=== PATIENT | female | born 1970 | race Caucasian/White ===

== ENCOUNTER 2016-09-15 15:14 | Outpatient (CLI) | payer OTHER | END 2016-09-15 15:15 | disposition home or self-care (01) | DX: M77.31 Calcaneal spur, right foot (principal); M77.32 Calcaneal spur, left foot ==

== ENCOUNTER 2017-04-17 14:39 | Emergency (ER) | payer OTHER ==
[2017-04-17 15:20] LABS: BASOPHILS # (AUTO) 0.1 10^3/uL (0.0-0.1); BASOPHILS % (AUTO) 0.5 %; EOSINOPHILS # (AUTO) 0.1 10^3/uL (0.0-0.7); EOSINOPHILS % (AUTO) 0.8 %; HGB - HEMOGLOBIN 15.1 g/dL (12.0-16.0); LYMPHOCYTES # (AUTO) 1.8 10^3/uL (1.5-3.5); LYMPHOCYTES % (AUTO) 14.5 %; MEAN CORPUSCULAR HEMOGLOBIN 31.6 pg (27.0-31.0); MEAN CORPUSCULAR HGB CONC 34.3 g/dL (32.0-36.0); MEAN CORPUSCULAR VOLUME 92.2 fL (81.0-99.0); MEAN PLATELET VOLUME 8.4 fL (7.9-10.8); MONOCYTES # (AUTO) 1.1 10^3/uL (0.0-1.0); MONOCYTES % (AUTO) 8.6 %; NEUTROPHILS # (AUTO) 9.6 10^3/uL (1.5-6.6); NEUTROPHILS % (AUTO) 75.6 %; RED BLOOD COUNT 4.77 10^6/uL (4.20-5.40); RED CELL DISTRIBUTION WIDTH 13.1 % (12.0-15.0); UNCORRECTED WHITE BLOOD COUNT 12.7 x10^3/uL; WHITE BLOOD COUNT 12.7 x10^3/uL (4.8-10.8)
--- NOTE | 2017-04-17 15:33 | XRAY Preliminary Report ---
Exam: XR CHEST 1 VIEW IMPRESSION: Normal single view chest. [facility] SITE ID: [id number]
[2017-04-17 15:35] LABS: ALBUMIN/GLOBULIN RATIO 1.4 (1.0-2.2); BILIRUBIN,TOTAL 0.7 mg/dL (0.2-1.0); CALCIUM 9.2 mg/dL (8.5-10.3); CREATININE 0.8 mg/dL (0.4-1.0); POTASSIUM 3.8 mmol/L (3.5-5.0); TOTAL PROTEIN 7.1 g/dL (6.7-8.2)
--- NOTE | 2017-04-17 15:37 | XRAY Report ---
EXAM: CHEST RADIOGRAPHY EXAM DATE: 04/17/2017 03:20 PM. CLINICAL HISTORY: Chest pain. COMPARISON: 09/21/2014. TECHNIQUE: 1 view. FINDINGS: Lungs/Pleura: No focal opacities evident. No pleural effusion. No pneumothorax. Mediastinum: Within exam limitations, the cardiomediastinal contour is normal. Other: None. IMPRESSION: Normal single view chest. [facility] Referring Provider Line: [phone] SITE ID: [id number]
[2017-04-17] MEDS ORDERED: SODIUM CHLORIDE 0.9% 1,000 ML IV ONE (15:53)
--- NOTE | 2017-04-17 15:57 | ED Physician Documentation ---
PD HPI CHEST PAIN - Stated complaint Stated Complaint: INCREASE HEART RATE - Chief complaint Chief Complaint: Cardiac - History obtained from History obtained from: Patient, Family - History of Present Illness Timing - onset: How many weeks ago (4) Timing - onset during: Light activity Timing - duration: Weeks Timing - details: Gradual onset, Still present, Waxing and waning Quality: Other (fluttering in the chest) Location: Substernal Radiation: Neck Improved by: Rest Worsened by: Exertion Associated symptoms: Shortness of air. 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 She has been having an issue with heart rate being rapid periodically since before . She does not feel particularly ill she did think she had a sinus infection and rapid heart rate is been associated with that previously so she went into see her doctor and was treated for that. She feels her symptoms are mostly improved. She does have state that she is urinating a lot. Review of Systems Constitutional: reports: Fatigue. denies: Fever, Chills Eyes: denies: Decreased vision Ears: denies: Ear pain Nose: reports: Congestion, Sinus pressure / pain Throat: denies: Sore throat Cardiac: reports: Palpitations. denies: Chest pain / pressure, Pedal edema, Calf pain Respiratory: reports: Dyspnea. 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 : None HEENT: Chronic sinusitis Psych: Anxiety Musculoskeletal: None Derm: None Other Past Medical History: Clifford's - Past Surgical History Past Surgical History: Yes General: Cholecystectomy, Appendectomy - Present Medications Home Medications: Ambulatory Orders Medication Instructions Recorded Confirmed Hydrocortisone 35 mg PO TID 06/28/15 04/17/17 Levothyroxine Sodium 50 mcg PO QDAC 06/28/15 04/17/17 Aspirin Chewable [[facility] [place] 81 mg PO DAILY 04/17/17 04/17/17 Aspirin] Cetirizine [ZyrTEC] 10 mg PO DAILY 04/17/17 04/17/17 - Allergies Allergies/Adverse Reactions: Allergies Allergy/AdvReac Type Severity Reaction Status Date / Time prochlorperazine edisylate * Allergy Severe Edema Verified 04/17/17 16:00 [From Compazine] prochlorperazine maleate * Allergy Severe Edema Verified 04/17/17 16:00 [From Compazine] Sulfa (Sulfonamide Allergy Intermediate Hives Verified 04/17/17 16:00 Antibiotics) amoxicillin trihydrate * Allergy Hives Verified 04/17/17 16:00 [From Augmentin] gluten Allergy Unknown Verified 04/17/17 16:00 potassium clavulanate * Allergy Hives Verified 04/17/17 16:00 [From Augmentin] sesame seed Allergy Unknown Verified 04/17/17 16:00 tramadol Allergy Unknown Verified 04/17/17 16:00 - Social History Does the pt smoke?: No Smoking Status: Never smoker Does the pt drink ETOH?: No Does the pt have substance abuse?: No - Immunizations Immunizations are current?: Yes - POLST Patient has POLST: No PD ED PE NORMAL - Vitals Vital signs reviewed: Yes - General General: Alert and oriented X 3, No acute distress, Well developed/nourished - HEENT HEENT: Atraumatic, PERRL, EOMI, Other (The left TM is thickened and lichenified consistent with recently improving/resolving infection.) - Neck Neck: Supple, no meningeal sign, No bony TTP - Cardiac Cardiac: No murmur, Other (tachy to 120 regular) - Respiratory Respiratory: No respiratory distress, Clear bilaterally - Abdomen Abdomen: Soft, Non tender - Back Back: No CVA TTP, No spinal TTP - Derm Derm: Normal color, Warm and dry, No rash - Extremities Extremities: No deformity, No edema - Neuro Neuro: No motor deficit, No sensory deficit Eye Opening: Spontaneous Motor: Obeys Commands Verbal: Oriented GCS Score: 15 - Psych Psych: Normal mood, Normal affect Results - Vitals Vitals: Vital Signs - 24 hr 04/17/17 04/17/17 04/17/17 14:47 15:43 18:03 Temperature 36.8 C 36.2 C L Heart Rate 135 H 127 H 96 Respiratory 20 17 17 Rate Blood Pressure 145/97 H 137/97 H 122/95 H O2 Saturation 100 100 98 Oxygen O2 Source Room air - EKG (time done) 1458 Rate: Rate (enter#) (130) Rhythm: Sinus tachycardia Ischemia: Normal ST segments Compare to prior EKG: Changed from prior EKG (SPT 06-26-2016 rate has increased. ) Computer interpretation: Disagree with computer (I do not see ST depression or T wave flattening. ) - Labs Labs: Laboratory Tests 04/17/17 04/17/17 04/17/17 15:12 15:12 15:12 WBC 12.7 H RBC 4.77 Hgb 15.1 Hct 44.0 MCV 92.2 MCH 31.6 H MCHC 34.3 RDW 13.1 Plt Count 232 MPV 8.4 Neut # 9.6 H Lymph # 1.8 [place] # 1.1 H Eos # 0.1 Baso # 0.1 Absolute Nucleated RBC 0.01 Nucleated RBC % 0.0 Sodium 139 Potassium 3.8 Chloride 105 Carbon Dioxide 23 Anion Gap 11.0 BUN 17 Creatinine 0.8 Estimated GFR (MDRD) 77 L Glucose 109 H Calcium 9.2 Total Bilirubin 0.7 AST 25 ALT 22 Alkaline Phosphatase 53 Troponin I < 0.04 Total Protein 7.1 Albumin 4.1 Globulin 3.0 Albumin/Globulin Ratio 1.4 Lipase 38 TSH Thyroxine (T4) Urine Color Urine Clarity Urine pH Ur Specific [place] Urine Protein Urine Glucose (UA) Urine Ketones Urine Occult Blood Urine Nitrite Urine Bilirubin Urine Urobilinogen Ur Leukocyte Esterase Urine RBC Urine WBC Ur Squamous Epith Cells Urine Bacteria Ur Microscopic Review Urine Culture Comments Urine HCG, Qual 04/17/17 04/17/17 04/17/17 15:12 16:06 16:06 WBC RBC Hgb Hct MCV MCH MCHC RDW Plt Count MPV Neut # Lymph # [place] # Eos # Baso # Absolute Nucleated RBC Nucleated RBC % Sodium Potassium Chloride Carbon Dioxide Anion Gap BUN Creatinine Estimated GFR (MDRD) Glucose Calcium Total Bilirubin AST ALT Alkaline Phosphatase Troponin I Total Protein Albumin Globulin Albumin/Globulin Ratio Lipase TSH 1.14 Thyroxine (T4) 7.65 Urine Color YELLOW Urine Clarity HAZY Urine pH 7.0 Ur Specific [place] <=1.005 <=1.005 Urine Protein NEGATIVE Urine Glucose (UA) NEGATIVE Urine Ketones NEGATIVE Urine Occult Blood SMALL H Urine Nitrite NEGATIVE Urine Bilirubin NEGATIVE Urine Urobilinogen 0.2 (NORMAL) Ur Leukocyte Esterase NEGATIVE Urine RBC 6-10 H Urine WBC 0-3 Ur Squamous Epith Cells MOD Squamous H Urine Bacteria None Seen Ur Microscopic Review INDICATED Urine Culture Comments NOT INDICATED Urine HCG, Qual NEGATIVE - Rads (name of study) 1 view chest Radiology: Prelim report reviewed (Impression: Normal single view chest.), EMP read indepedently, See rad report CT angio chest Radiology: Prelim report reviewed (Impression: Negative pulmonary CT angiogram. 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 She is found to be volume depleted IV is begun and saline is administered. She has a history of pulmonary embolism and CT angiogram is obtained as well. CT is negative for embolism or lung disease. The patient is hydrated with saline by vein and her heart rate decreases to under 100. Departure - Departure Disposition: 01 Home, Self Care Clinical Impression: Sinus tachycardia, Dehydration Condition: Stable Instructions: ED Dehydration, ED Tachycardia Pat PSVT Follow-Up: Khushi Gurrola PA-C [Primary Care Provider] - Discharge Date/Time: 04/17/17 18:07
[2017-04-17] MEDS ORDERED: IOPAMIDOL-300 100 ML VIAL ONE (16:02)
[2017-04-17] MEDS ORDERED: IOPAMIDOL-300 100 ML VIAL IVP ONE ×2 (16:24)
--- NOTE | 2017-04-17 16:57 | CT Preliminary Report ---
Exam: CT CHEST ANGIO (PE) IMPRESSION: Negative pulmonary CT angiogram. No pulmonary emboli. [facility] SITE ID: [id number]
--- NOTE | 2017-04-17 16:59 | CT Report ---
EXAM: CT ANGIOGRAM CHEST EXAM DATE: 04/17/2017 04:27 PM. CLINICAL HISTORY: Tachycardia. COMPARISON: 01/23/2016. TECHNIQUE: Routine helical imaging was performed through the chest in the pulmonary arterial phase. I V Contrast: 100 cc Isovue-300. Reconstructions: Coronal 3-D MIP reconstructions.Sagittal and coronal. In accordance with CT protocol optimization, one or more of the following dose reduction techniques w ere utilized for this exam: automated exposure control, adjustment of mA and/or KV based on patient s ize, or use of iterative reconstructive technique. FINDINGS: Pulmonary Arteries: Diagnostic quality: Adequate through the segmental arteries. No evidence for acute or chronic pulmona ry emboli. RV/LV is within normal limits. There is no interventricular septal bowing. There is no reflux of cont rast material in the IVC. Lungs/Pleura: No consolidation, nodules, or edema. No effusions or pneumothorax. Mediastinum: Normal. No cardiac enlargement or adenopathy. Thoracic Aorta: Unremarkable. Upper Abdomen: No acute abnormalities. The left kidney is not seen. Other: None. IMPRESSION: Negative pulmonary CT angiogram. No pulmonary emboli. [facility] Referring Provider Line: [phone] SITE ID: [id number]
[2017-04-17 17:26] LABS: BILIRUBIN,URINE NEGATIVE (NEGATIVE)
[2017-04-17 17:28] LABS: UA w/ MICROSCOPIC CHARGE YES
[2017-04-17 17:29] LABS: HCG UR QUAL NEGATIVE
[2017-04-17 17:38] LABS: WBC,URINE 0-3 /HPF (0-5)
[2017-04-17 17:39] LABS: UR CULTURE IF IND NOT INDICATED
[2017-04-17 18:04] VITALS: BP 122/95
[2017-04-17 18:36] LABS: THYROID STIMULATING HORMONE 1.14 uIU/mL (0.34-5.60)
== END 2017-04-17 18:07 | disposition home or self-care (01) ==
LOC: ED 14:39
DX: R00.0 Tachycardia, unspecified (principal); E86.0 Dehydration; E27.1 Primary adrenocortical insufficiency; Z86.711 Personal history of pulmonary embolism; Z79.82 Long term (current) use of aspirin
CPT/HCPCS: 36415; 71010; 71275; 80053; 81001; 81025; 83690; 84436; 84443; 84484; 85025; 93005; 96360; 99283; 99284; Q9967; 81003; 87086

== ENCOUNTER 2017-05-11 10:55 | Outpatient (CLI) | payer OTHER ==
--- NOTE | 2017-05-13 09:21 | Mammography Report ---
DATE OF SERVICE: 05/11/2017 DIGITAL SCREENING MAMMOGRAM: 05/11/2017 CLINICAL INDICATION: A 47-year-old, for screening. COMPARISON: 01/2016, 03/2013. TECHNIQUE: Routine CC and MLO projections were obtained of the breasts. FINDINGS: Scattered fibroglandular tissue is present within the breasts. There are no dominant mass es, suspicious microcalcifications, or secondary signs of malignancy. In comparison to the previous stud ies, there are no significant changes. ASSESSMENT: NO MAMMOGRAPHIC EVIDENCE OF MALIGNANCY. NO SIGNIFICANT INTERVAL CHANGES. RECOMMENDATION: Screening mammography is recommended annually. BIRADS category 1 - negative. STANDARD QUALIFYING STATEMENTS: 1. This examination was reviewed with the aid of Computed-Aided Detection (CAD). 2. A negative or benign imaging report should not delay biopsy if clinically suspicious findings are present. Consider surgical consultation if warranted. More than 5% of cancers are not identified by imaging. 3. Dense breasts may obscure an underlying neoplasm. TD: 05/13/2017 10:19
== END 2017-05-11 10:56 | disposition home or self-care (01) ==
LOC: DI 10:55
PROVIDERS: ATTEND Physician Assistant Medical
DX: Z12.31 Encounter for screening mammogram for malignant neoplasm of breast (principal)
CPT/HCPCS: 77067

== ENCOUNTER 2017-06-13 11:18 | Outpatient (CLI) | payer OTHER ==
--- NOTE | 2017-06-13 12:46 | Ultrasound Report ---
EXAM: PELVIC ULTRASOUND EXAM DATE: 06/13/2017 12:03 PM. CLINICAL HISTORY: EXCESSIVE AND FREQUENT MENSTRUATION WITH REGULAR C. LMP 05/24/2017. COMPARISON: None. TECHNIQUE: Realtime transabdominal pelvic scan performed to identify the uterus and adnexa and as an overview of other pelvic structures, followed by transvaginal scan to provide greater detail of the u terus and adnexa, with static image documentation. FINDINGS: Uterus: 9.0 x 5.3 x 6.6 cm, volume 165 cc. Anteverted position. Normal overall size and echotexture. Masses: None. Endometrium: Between 10 and 13 mm. No focal mass, laminar appearance. No hypervascularity. Junctional zone appears intact. Cervix: Unremarkable. Right Ovary: 2.3 x 2.0 x 2.2 cm, volume 5.3 cc. 1.9 cm simple cyst. Normal echotexture and blood flow . Left Ovary: 2.9 x 2.0 x 3 cm, volume 9.1 cc. 1.9 x 1.1 x 1.2 cm cyst with internal echoes/debris. No internal vascularity. Normal echotexture and blood flow. Free Fluid: Small volume of free fluid on the left. Other: Left pelvic kidney. No hydronephrosis. IMPRESSION: 1. 1.9 cm probable hemorrhagic follicular cyst in left ovary. Small amount of free fluid in left lowe r quadrant. Simple 1.9 cm cyst in right ovary. Ovaries otherwise unremarkable. 2. Incidental left pelvic kidney. No hydronephrosis. [facility] Referring Provider Line: [phone] SITE ID: [id number]
== END 2017-06-13 11:19 | disposition home or self-care (01) ==
LOC: DI 11:18
PROVIDERS: ATTEND Physician Assistant Medical
DX: N83.202 Unspecified ovarian cyst, left side (principal); N83.201 Unspecified ovarian cyst, right side
CPT/HCPCS: 76830; 76856

== ENCOUNTER 2017-06-29 20:48 | Outpatient (CLI) | payer OTHER | END 2017-06-29 20:49 | disposition home or self-care (01) | LOC: DI 20:48 | PROVIDERS: ATTEND Obstetrics & Gynecology | DX: Z53.9 Procedure and treatment not carried out, unspecified reason (principal) ==

== ENCOUNTER 2017-08-20 23:11 | Emergency (ER) | payer OTHER ==
--- NOTE | 2017-08-20 23:24 | ED Physician Documentation ---
PD HPI FOCAL NEURO - Stated complaint Stated Complaint: FACIAL NUMBNESS - History obtained from History obtained from: Patient - History of Present Illness Timing - onset: Enter time (22:45), Today Timing - details: Abrupt onset Severity of deficit: Mild Numbness: Right Associated symptoms: No: Headache, Syncope, Fall, Head injury, Chest pain, Fever Baseline status: positive: A&OX3, ambulatory, indep Similar symptoms before: Has not had sx before Recently seen: Not recently seen - Additional information Additional information: 10:45 PM tonight, sudden onset right facial swelling and numbness (she compares the sensation to that associated with dental block). she notes redness as well, though faint Review of Systems Constitutional: reports: Reviewed and negative Eyes: reports: Reviewed and negative Nose: denies: Congestion, Sinus pressure / pain Throat: denies: Dental pain / toothache Cardiac: reports: Reviewed and negative Respiratory: reports: Reviewed and negative GI: reports: Reviewed and negative Neurologic: reports: Numbness. 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 HEENT: Chronic sinusitis Psych: Anxiety Musculoskeletal: None Derm: None - Past Surgical History Past Surgical History: Yes General: Cholecystectomy, Appendectomy - Present Medications Home Medications: Ambulatory Orders Medication Instructions Recorded Confirmed Hydrocortisone 35 mg PO TID 06/28/15 04/17/17 Levothyroxine Sodium 50 mcg PO QDAC 06/28/15 04/17/17 Aspirin Chewable [[facility] [place]win 81 mg PO DAILY 04/17/17 04/17/17 Aspirin] Cetirizine [ZyrTEC] 10 mg PO DAILY 04/17/17 04/17/17 Cephalexin [Keflex] 500 mg PO Q6HR #27 capsule 08/21/17 predniSONE [Prednisone] 20 mg PO BID #9 tablet 08/21/17 - Allergies Allergies/Adverse Reactions: Allergies Allergy/AdvReac Type Severity Reaction Status Date / Time prochlorperazine edisylate * Allergy Severe Edema Verified 08/20/17 23:35 [From Compazine] prochlorperazine maleate * Allergy Severe Edema Verified 08/20/17 23:35 [From Compazine] Sulfa (Sulfonamide Allergy Intermediate Hives Verified 08/20/17 23:35 Antibiotics) amoxicillin trihydrate * Allergy Hives Verified 08/20/17 23:35 [From Augmentin] gluten Allergy Unknown Verified 08/20/17 23:35 potassium clavulanate * Allergy Hives Verified 08/20/17 23:35 [From Augmentin] sesame seed Allergy Unknown Verified 08/20/17 23:35 tramadol Allergy Unknown Verified 08/20/17 23:35 - Social History Does the pt smoke?: No Smoking Status: Never smoker Does the pt drink ETOH?: No Does the pt have substance abuse?: No - Immunizations Immunizations are current?: Yes - POLST Patient has POLST: No PD ED PE NORMAL - Vitals Vital signs reviewed: Yes - General General: Alert and oriented X 3, No acute distress, Well developed/nourished - HEENT HEENT: PERRL, EOMI, Moist mucous membranes, Pharynx benign, Dentition benign - Neck Neck: Supple, no meningeal sign - Cardiac Cardiac: RRR, No murmur, No gallop, No rub - Respiratory Respiratory: No respiratory distress, Clear bilaterally - Derm Derm: Normal color, Warm and dry - Extremities Extremities: No edema - Neuro Neuro: Alert and oriented X 3, porter head 2-12 intact, No motor deficit, No sensory deficit, Normal speech Eye Opening: Spontaneous Motor: Obeys Commands Verbal: Oriented GCS Score: 15 PD ED PE EXPANDED - HEENT HEENT: Other (subtle swelling right face (cheek) with small, faint erythema adjacent to right lower lip) Results - Vitals Vitals: Oxygen O2 Source Room air - Labs Labs: Laboratory Tests 08/20/17 08/20/17 23:55 23:55 WBC 10.3 RBC 4.57 Hgb 14.3 Hct 42.6 MCV 93.1 MCH 31.3 H MCHC 33.6 RDW 13.5 Plt Count 200 MPV 9.3 Neut # 6.7 H Lymph # 2.5 [place] # 0.9 Eos # 0.2 Baso # 0.0 Absolute Nucleated RBC 0.00 Nucleated RBC % 0.0 Sodium 138 Potassium 3.9 Chloride 107 Carbon Dioxide 24 Anion Gap 7.0 BUN 16 Creatinine 0.7 Estimated GFR (MDRD) 90 Glucose 144 H Calcium 8.9 - Rads (name of study) CTH Radiology: Prelim report reviewed, See rad report PD MEDICAL DECISION MAKING - ED course Complexity details: reviewed results, re-evaluated patient, considered differential, d/w patient ED course: there is subtle swelling of right cheek and trace erythema. she describes numbness although she perceives equal LTS bilaterally on exam. swelling might represent weakness c/w Marilla Palsy (causing sagging and thus subtle appearance and perception of swelling), but there is no demonstrable weakness when tested ( smiling, raising eyebrows, closing eyes); while Marilla Palsy is of low suspicion at this time, when considering numbness as well, will prescribe prednisone for possible early Marilla Palsy. Similarly, prescribed antibiotic for possible infectious process, although this is also low likelihood at this time. allergic reaction is possible (no apparent trigger), and not likely due to unilateral swelling, but prednisone would also help if this is the etiology. she is already taking QD antihistamine Departure - Departure Disposition: 01 Home, Self Care Clinical Impression: Facial swelling Condition: Good Instructions: ED Marilla Palsy, ED Cellulitis Facial Follow-Up: Khushi Gurrola PA-C [Primary Care Provider] - Prescriptions: Cephalexin [Keflex] 500 mg PO Q6HR #27 capsule predniSONE [Prednisone] 20 mg PO BID #9 tablet Discharge Date/Time: 08/21/17 01:59
[2017-08-21 00:10] LABS: CALCIUM 8.9 mg/dL (8.5-10.3); CREATININE 0.7 mg/dL (0.4-1.0)
[2017-08-21 00:18] LABS: BASOPHILS % (AUTO) 0.5 %; EOSINOPHILS # (AUTO) 0.2 10^3/uL (0.0-0.7); HGB - HEMOGLOBIN 14.3 g/dL (12.0-16.0); LYMPHOCYTES # (AUTO) 2.5 10^3/uL (1.5-3.5); LYMPHOCYTES % (AUTO) 23.8 %; MEAN CORPUSCULAR HEMOGLOBIN 31.3 pg (27.0-31.0); MEAN CORPUSCULAR HGB CONC 33.6 g/dL (32.0-36.0); MEAN CORPUSCULAR VOLUME 93.1 fL (81.0-99.0); MEAN PLATELET VOLUME 9.3 fL (7.9-10.8); MONOCYTES # (AUTO) 0.9 10^3/uL (0.0-1.0); MONOCYTES % (AUTO) 8.4 %; NEUTROPHILS # (AUTO) 6.7 10^3/uL (1.5-6.6); NEUTROPHILS % (AUTO) 65.3 %; PLT - PLATELET COUNT 200 10^3/uL (130-450); RED BLOOD COUNT 4.57 10^6/uL (4.20-5.40); RED CELL DISTRIBUTION WIDTH 13.5 % (12.0-15.0); WHITE BLOOD COUNT 10.3 x10^3/uL (4.8-10.8)
--- NOTE | 2017-08-21 00:48 | CT Preliminary Report ---
Exam: CT HEAD W/O IMPRESSION: 1. Negative CT head without contrast. No significant change compared to 08/15/2015. [facility] SITE ID: [id number]
--- NOTE | 2017-08-21 00:48 | CT Report ---
EXAM: CT HEAD EXAM DATE: 08/21/2017 12:15 AM. CLINICAL HISTORY: Right facial numbness. COMPARISON: CT head 08/15/2015.. TECHNIQUE: Multiaxial CT images were obtained from the foramen magnum to the vertex. Reformats: Coron al. IV contrast: None. In accordance with CT protocol optimization, one or more of the following dose reduction techniques w ere utilized for this exam: automated exposure control, adjustment of mA and/or KV based on patient s ize, or use of iterative reconstructive technique. FINDINGS: Parenchyma: No intraparenchymal hemorrhage. No evidence of mass, midline shift, or CT findings of inf arction. Olivares-white differentiation is distinct. Extraaxial Spaces: Normal for age. No subdural or epidural collections identified. Ventricles: Normal in size and position. Sinuses and Orbits: Imaged paranasal sinuses, orbits, and mastoids show no significant abnormality. Bones: No evidence of fracture or calvarial defect. Other: None. IMPRESSION: 1. Negative CT head without contrast. No significant change compared to 08/15/2015. [facility] Referring Provider Line: [phone] SITE ID: [id number]
[2017-08-21] MEDS ORDERED: cephALEXin 250 MG CAPSULE PO STA (01:47)
[2017-08-21] MEDS ORDERED: predniSONE 20 MG TABLET PO STA (01:47)
[2017-08-21 01:57] VITALS: BP 146/88
== END 2017-08-21 01:59 | disposition home or self-care (01) ==
LOC: ED 23:11
DX: R22.0 Localized swelling, mass and lump, head (principal); R20.0 Anesthesia of skin; Z86.711 Personal history of pulmonary embolism
CPT/HCPCS: 36415; 70450; 80048; 85025; 99284; A9270; J7512

== ENCOUNTER 2017-11-19 15:28 | Emergency (ER) | payer OTHER ==
[2017-11-19] MEDS ORDERED: SODIUM CHLORIDE 0.9% 1,000 ML IV ONE (16:01)
[2017-11-19 16:11] LABS: BASOPHILS % (AUTO) 0.4 %; EOSINOPHILS # (AUTO) 0.1 10^3/uL (0.0-0.7); EOSINOPHILS % (AUTO) 0.5 %; LYMPHOCYTES # (AUTO) 1.4 10^3/uL (1.5-3.5); LYMPHOCYTES % (AUTO) 13.7 %; MEAN CORPUSCULAR HEMOGLOBIN 31.9 pg (27.0-31.0); MEAN CORPUSCULAR HGB CONC 33.5 g/dL (32.0-36.0); MEAN CORPUSCULAR VOLUME 95.3 fL (81.0-99.0); MEAN PLATELET VOLUME 9.3 fL (7.9-10.8); MONOCYTES # (AUTO) 0.7 10^3/uL (0.0-1.0); MONOCYTES % (AUTO) 6.5 %; NEUTROPHILS # (AUTO) 8.3 10^3/uL (1.5-6.6); NEUTROPHILS % (AUTO) 78.9 %; PLT - PLATELET COUNT 236 10^3/uL (130-450); RED BLOOD COUNT 4.71 10^6/uL (4.20-5.40); RED CELL DISTRIBUTION WIDTH 13.1 % (12.0-15.0); WHITE BLOOD COUNT 10.5 x10^3/uL (4.8-10.8)
[2017-11-19 16:17] LABS: PT - PROTHROMBIN TIME 11.5 secs (9.9-12.6)
[2017-11-19 16:26] LABS: ALBUMIN 4.3 g/dL (3.2-5.5); ALBUMIN/GLOBULIN RATIO 1.3 (1.0-2.2); CREATININE 0.9 mg/dL (0.4-1.0); MAGNESIUM 1.9 mg/dL (1.7-2.8); TOTAL PROTEIN 7.5 g/dL (6.7-8.2)
--- NOTE | 2017-11-19 16:32 | ED Physician Documentation ---
History of Present Illness - Stated complaint Stated Complaint: LT LEG PX/RACING HEART - Chief complaint Chief Complaint: General - History obtained from History obtained from: Patient - Additonal information Additional information: 47-year-old female presents to the emergency department for evaluation of tachycardia. The patient has a history of pulmonary embolism and DVT and in the past her only symptom was tachycardia. [place] the [place] the patient felt that her breathing was labored, she noticed that her heart was racing and when she checked her Fitbit her heart rate was in the 130s. The patient denies active chest pain or shortness of breath. The patient recently traveled from [place], the patient drove the car for 16 hours. The patient reported having leg pain during the trip but now her leg pain has improved. The patient denies recent illness, abdominal pain or changes in her medications or new over- the-counter medications. Symptoms are described as moderate. No radiation of the symptoms. No other associated symptoms. No relieving factors Review of Systems Constitutional: denies: Fever, Chills, Fatigue Eyes: denies: Discharge Ears: denies: Ear pain Nose: denies: Congestion Throat: denies: Sore throat Cardiac: reports: Palpitations. denies: Chest pain / pressure Respiratory: reports: Dyspnea. denies: Cough, Hemoptysis GI: denies: Abdominal Pain : denies: Dysuria Skin: denies: Rash Musculoskeletal: denies: Neck pain Neurologic: denies: Generalized weakness, Numbness, Syncope Psychiatric: denies: Depressed Immunocompromised: denies: Chemotherapy PD PAST MEDICAL HISTORY - Past Medical History Past Medical History: Yes Cardiovascular: None, Pulmonary embolism Respiratory: Other Endocrine/Autoimmune: Other GI: None ETHOLOGIST: None : None HEENT: Chronic sinusitis Psych: Anxiety Musculoskeletal: None Derm: None Other Past Medical History: Addisons - Past Surgical History Past Surgical History: Yes General: Cholecystectomy, Appendectomy - Present Medications Home Medications: Ambulatory Orders Medication Instructions Recorded Confirmed Hydrocortisone 35 mg PO TID 06/28/15 04/17/17 Levothyroxine Sodium 50 mcg PO QDAC 06/28/15 04/17/17 Aspirin Chewable [[facility] [place] 81 mg PO DAILY 04/17/17 04/17/17 Aspirin] Cetirizine [ZyrTEC] 10 mg PO DAILY 04/17/17 04/17/17 - Allergies Allergies/Adverse Reactions: Allergies Allergy/AdvReac Type Severity Reaction Status Date / Time prochlorperazine edisylate * Allergy Severe Edema Verified 08/20/17 23:35 [From Compazine] prochlorperazine maleate * Allergy Severe Edema Verified 08/20/17 23:35 [From Compazine] Sulfa (Sulfonamide Allergy Intermediate Hives Verified 08/20/17 23:35 Antibiotics) amoxicillin trihydrate * Allergy Hives Verified 08/20/17 23:35 [From Augmentin] gluten Allergy Unknown Verified 08/20/17 23:35 potassium clavulanate * Allergy Hives Verified 08/20/17 23:35 [From Augmentin] sesame seed Allergy Unknown Verified 08/20/17 23:35 tramadol Allergy Unknown Verified 11/19/17 15:45 - Social History Does the pt smoke?: No Smoking Status: Never smoker Does the pt drink ETOH?: No Does the pt have substance abuse?: No - Immunizations Immunizations are current?: Yes - POLST Patient has POLST: No PD ED PE NORMAL - General General: Alert and oriented X 3, No acute distress - HEENT HEENT: Atraumatic, PERRL, EOMI - Neck Neck: Supple, no meningeal sign - Cardiac Cardiac: Other (Regular Rhythm, tachycardia with PVCs) - Respiratory Respiratory: No respiratory distress, Clear bilaterally - Abdomen Abdomen: Normal bowel sounds, Soft, Non tender, Non distended - Derm Derm: Normal color - Extremities Extremities: No deformity, No tenderness to palpate, No edema. No: No calf tenderness / cord (Bilateral calf tendernes or edema) - Neuro Neuro: Alert and oriented X 3, Normal speech - Psych Psych: Normal mood Results - Vitals Vitals: Vital Signs - 24 hr 11/19/17 15:42 Temperature 36.4 C L Heart Rate 140 H Respiratory 20 Rate Blood Pressure 125/80 O2 Saturation 99 Oxygen O2 Source Room air - EKG (time done) 15: 54 Rate: Rate (enter#) Rhythm: Sinus tachycardia Intervals: Normal TN, QRS normal QRS: Normal Ischemia: Non specific changes Other comments: Other comments (Sinus tachycardia with nonspecific ST changes and multiple PVCs) - Labs Labs: Laboratory Tests 11/19/17 11/19/17 11/19/17 16:06 16:06 16:06 WBC 10.5 RBC 4.71 Hgb 15.0 Hct 44.9 MCV 95.3 MCH 31.9 H MCHC 33.5 RDW 13.1 Plt Count 236 MPV 9.3 Neut # (Auto) 8.3 H Lymph # (Auto) 1.4 L Carlton # (Auto) 0.7 Eos # (Auto) 0.1 Baso # (Auto) 0.0 Absolute Nucleated RBC 0.00 Nucleated RBC % 0.0 PT 11.5 INR 1.0 APTT 23.9 L Sodium 140 Potassium 4.0 Chloride 108 Carbon Dioxide 23 Anion Gap 9.0 BUN 16 Creatinine 0.9 Estimated GFR (MDRD) 67 L Glucose 108 H Calcium 9.0 Magnesium 1.9 Total Bilirubin 1.0 AST 22 ALT 19 Alkaline Phosphatase 41 L Troponin I B-Natriuretic Peptide Total Protein 7.5 Albumin 4.3 Globulin 3.2 Albumin/Globulin Ratio 1.3 Lipase 33 TSH Free T4 Urine Color Urine Clarity Urine pH Ur Specific Luckey Urine Protein Urine Glucose (UA) Urine Ketones Urine Occult Blood Urine Nitrite Urine Bilirubin Urine Urobilinogen Ur Leukocyte Esterase Urine RBC Urine WBC Ur Squamous Epith Cells Urine Bacteria Ur Microscopic Review Urine Culture Comments Urine HCG, Qual Urine Opiates Screen Ur Oxycodone Screen Urine Methadone Screen Ur Propoxyphene Screen Ur Barbiturates Screen Ur Tricyclics Screen Ur Phencyclidine Scrn Ur Amphetamine Screen U Methamphetamines Scrn U Benzodiazepines Scrn Urine Cocaine Screen U Cannabinoids Screen 11/19/17 11/19/17 11/19/17 16:06 16:06 16:06 WBC RBC Hgb Hct MCV MCH MCHC RDW Plt Count MPV Neut # (Auto) Lymph # (Auto) Carlton # (Auto) Eos # (Auto) Baso # (Auto) Absolute Nucleated RBC Nucleated RBC % PT INR APTT Sodium Potassium Chloride Carbon Dioxide Anion Gap BUN Creatinine Estimated GFR (MDRD) Glucose Calcium Magnesium Total Bilirubin AST ALT Alkaline Phosphatase Troponin I < 0.04 B-Natriuretic Peptide 12 Total Protein Albumin Globulin Albumin/Globulin Ratio Lipase TSH 0.52 Free T4 0.97 Urine Color Urine Clarity Urine pH Ur Specific Luckey Urine Protein Urine Glucose (UA) Urine Ketones Urine Occult Blood Urine Nitrite Urine Bilirubin Urine Urobilinogen Ur Leukocyte Esterase Urine RBC Urine WBC Ur Squamous Epith Cells Urine Bacteria Ur Microscopic Review Urine Culture Comments Urine HCG, Qual Urine Opiates Screen Ur Oxycodone Screen Urine Methadone Screen Ur Propoxyphene Screen Ur Barbiturates Screen Ur Tricyclics Screen Ur Phencyclidine Scrn Ur Amphetamine Screen U Methamphetamines Scrn U Benzodiazepines Scrn Urine Cocaine Screen U Cannabinoids Screen 11/19/17 11/19/17 16:30 16:30 WBC RBC Hgb Hct MCV MCH MCHC RDW Plt Count MPV Neut # (Auto) Lymph # (Auto) Carlton # (Auto) Eos # (Auto) Baso # (Auto) Absolute Nucleated RBC Nucleated RBC % PT INR APTT Sodium Potassium Chloride Carbon Dioxide Anion Gap BUN Creatinine Estimated GFR (MDRD) Glucose Calcium Magnesium Total Bilirubin AST ALT Alkaline Phosphatase Troponin I B-Natriuretic Peptide Total Protein Albumin Globulin Albumin/Globulin Ratio Lipase TSH Free T4 Urine Color YELLOW Urine Clarity CLEAR Urine pH 7.0 Ur Specific Luckey <=1.005 Urine Protein NEGATIVE Urine Glucose (UA) NEGATIVE Urine Ketones NEGATIVE Urine Occult Blood SMALL H Urine Nitrite NEGATIVE Urine Bilirubin NEGATIVE Urine Urobilinogen 0.2 (NORMAL) Ur Leukocyte Esterase NEGATIVE Urine RBC 6-10 H Urine WBC 0-3 Ur Squamous Epith Cells FEW Squamous Urine Bacteria Rare Ur Microscopic Review INDICATED Urine Culture Comments NOT INDICATED Urine HCG, Qual NEGATIVE Urine Opiates Screen NEGATIVE Ur Oxycodone Screen NEGATIVE Urine Methadone Screen NEGATIVE Ur Propoxyphene Screen NEGATIVE Ur Barbiturates Screen NEGATIVE Ur Tricyclics Screen NEGATIVE Ur Phencyclidine Scrn NEGATIVE Ur Amphetamine Screen NEGATIVE U Methamphetamines Scrn NEGATIVE U Benzodiazepines Scrn NEGATIVE Urine Cocaine Screen NEGATIVE U Cannabinoids Screen NEGATIVE - Rads (name of study) Bedside cardiac ultrasound Radiology: Other CTA CHEST Radiology: Final report received, See rad report (Impression: No DVT) Venous Doppler Radiology: Final report received, See rad report PD MEDICAL DECISION MAKING - ED course ED course: On reevaluation the patient is resting comfortably and on the monitor her heart rate is below 100 bpm, the patient's workup does not reveal any acute abnormality that would necessitate admission to the hospital or further workup in the emergency department. The patient feels much improved and appears appropriate for discharge home and further workup as an outpatient. I discussed with the patient the findings and plan she understands and agrees. I discussed warning signs and recommended returning to the emergency department immediately for worsening or concerns. - Sepsis Event Vital Signs: Vital Signs - 24 hr 11/19/17 15:42 Temperature 36.4 C L Heart Rate 140 H Respiratory 20 Rate Blood Pressure 125/80 O2 Saturation 99 Oxygen O2 Source Room air Departure - Departure Disposition: Home, Self Care Clinical Impression: Tachycardia Dyspnea Qualifiers: Dyspnea type: unspecified Qualified Code(s): R06.00 - Dyspnea, unspecified Leg pain Qualifiers: Laterality: unspecified laterality Qualified Code(s): M79.606 - Pain in leg, unspecified Condition: Good Instructions: ED Dyspnea Shortness of Breath, Tachycardia Follow-Up: Khushi Gurrola PA-C [Primary Care Provider] - Within 3 Days (Please ask your primary care physicians commercial loan assistant to arrange for an outpatient Holter monitor and echocardiogram to further evaluate your symptoms.) Comments: Please return to the emergency department for worsening symptoms or any concerns
[2017-11-19 16:45] LABS: MUDS CUTOFF CONCENTRATIONS CUTOFF CONC BELOW:
[2017-11-19 16:50] LABS: BILIRUBIN,URINE NEGATIVE (NEGATIVE); GLUCOSE, URINE (UA) NEGATIVE (NEGATIVE); KETONES,URINE (UA) NEGATIVE (NEGATIVE); LEUKOCYTE ESTERASE, URINE NEGATIVE (NEGATIVE); NITRITE,URINE NEGATIVE (NEGATIVE); OCCULT BLOOD,URINE SMALL (NEGATIVE); PROTEIN,URINE NEGATIVE (NEGATIVE); UROBILINOGEN,URINE 0.2 (NORMAL) E.U./dL (NORMAL)
[2017-11-19 16:52] LABS: CLARITY,URINE CLEAR (CLEAR); HCG UR QUAL NEGATIVE
[2017-11-19 16:58] LABS: THYROID STIMULATING HORMONE 0.52 uIU/mL (0.34-5.60)
[2017-11-19 17:00] LABS: FREE T4 (FREE THYROXINE) 0.97 ng/dL (0.58-1.64)
[2017-11-19 17:00] LABS: AMPHETAMINE SCREEN,URINE NEGATIVE (NEGATIVE); BENZODIAZEPINES SCREEN, URINE NEGATIVE (NEGATIVE); COCAINE SCREEN URINE NEGATIVE (NEGATIVE); METHADONE SCREEN, URINE NEGATIVE (NEGATIVE); METHAMPHETAMINES SCREEN, URINE NEGATIVE (NEGATIVE); OPIATE SCREEN, URINE NEGATIVE (NEGATIVE); OXYCODONE SCREEN, URINE NEGATIVE (NEGATIVE); PROPOXYPHENE SCREEN, URINE NEGATIVE (NEGATIVE); TRICYCLIC ANTIDEPRESSANT,URINE NEGATIVE (NEGATIVE)
[2017-11-19 17:01] LABS: BACTERIA,URINE Rare /HPF (None Seen); SQUAMOUS EPITHELIAL CELL,UR FEW Squamous (<= Few)
[2017-11-19] MEDS ORDERED: IOPAMIDOL-300 100 ML VIAL ONE (17:11)
[2017-11-19] MEDS ORDERED: IOPAMIDOL-300 100 ML VIAL IVP ONE (17:27)
--- NOTE | 2017-11-19 18:09 | CT Report ---
Procedure Date: 11/19/2017 Accession Number: [id number] / [id number] Procedure: CT - Chest Angio (PE) CPT Code: FULL RESULT: EXAM: CT ANGIOGRAM CHEST EXAM DATE: 11/19/2017 05:44 PM. CLINICAL HISTORY: Tachycardia, shortness of breath, history of pulmo. COMPARISON: CHEST ANGIO 04/17/2017. TECHNIQUE: Routine helical imaging was performed through the chest in the pulmonary arterial phase. IV Contrast: ISOVUE 300 80mL. Reconstructions: Coronal 3-D MIP reconstructions.Sagittal and coronal. In accordance with CT protocol optimization, one or more of the following dose reduction techniques were utilized for this exam: automated exposure control, adjustment of mA and/or KV based on patient size, or use of iterative reconstructive technique. FINDINGS: Pulmonary Arteries: Diagnostic quality: Adequate through the segmental arteries. Negative for acute pulmonary embolism. Main pulmonary artery is normal in size. Lungs/Pleura: No consolidative process or focal pneumonia. Trachea and central airways appear normal in caliber. Negative for pleural effusion and pneumothorax. Mediastinum: The heart size is normal. Negative for pericardial effusion. No mediastinal or hilar lymphadenopathy. Thoracic Aorta: Unremarkable. Upper Abdomen: Gallbladder surgically absent. Other: None. IMPRESSION: 1. Negative for pulmonary embolism. No other significant acute abnormality to explain clinical symptoms. RADIA
--- NOTE | 2017-11-19 19:53 | Ultrasound Report ---
Procedure Date: 11/19/2017 Accession Number: [id number] / [id number] Procedure: US - Duplex Ext Veins Bilateral CPT Code: FULL RESULT: EXAM: BILATERAL LOWER EXTREMITY VENOUS ULTRASOUND EXAM DATE: 11/19/2017 07:09 PM. CLINICAL HISTORY: Leg pain, h/o PE DVT. COMPARISON: CT pulmonary angiogram 11/19/2017 and 04/17/2017 left lower extremity DVT exam fall 20 06/23/2015 and 01/23/2016. TECHNIQUE: Real-time sonographic vascular imaging was performed by the pediatric critical care nurse through the lower extremities utilizing both color-flow and Doppler spectral analysis. Multiple ambulatory service representative static images were saved for review. FINDINGS: Right: Common Femoral Vein (CFV): Normal. CFV-GSV Junction: Normal. Profunda Femoral Vein (PFV): Normal. Femoral Vein (FV) Prox: Normal. Femoral Vein (FV) Mid: Normal. Femoral Vein (FV) Dist: Normal. Popliteal Vein: Normal. Posterior Tibial Veins: Normal. Peroneal Veins: Normal. Left: Common Femoral Vein (CFV): Normal. CFV-GSV Junction: Normal. Profunda Femoral Vein (PFV): Normal. Femoral Vein (FV) Prox: Normal. Femoral Vein (FV) Mid: Normal. Femoral Vein (FV) Dist: Normal. Popliteal Vein: Normal. Posterior Tibial Veins: Normal. Peroneal Veins: Normal. Other: None. IMPRESSION: No evidence for lower extremity deep venous thrombosis bilaterally. RADIA
[2017-11-19 20:28] VITALS: BP 125/91
== END 2017-11-19 20:27 | disposition home or self-care (01) ==
LOC: ED 15:28
DX: R00.0 Tachycardia, unspecified (principal); R06.00 Dyspnea, unspecified; M79.606 Pain in leg, unspecified; E27.1 Primary adrenocortical insufficiency; Z86.718 Personal history of other venous thrombosis and embolism; Z86.711 Personal history of pulmonary embolism; Z79.82 Long term (current) use of aspirin
CPT/HCPCS: 71275; 80053; 80306; 81001; 81025; 83690; 83735; 83880; 84439; 84443; 84484; 85025; 85610; 85730; 93005; 93970; 96360; 99283; 99284; Q9967; 36415; 81003; 87086

== ENCOUNTER 2018-08-16 14:43 | Outpatient (CLI) | payer OTHER ==
--- NOTE | 2018-08-17 10:40 | Mammography Report ---
Reason: SCREENING MAMMO Procedure Date: 08/16/2018 Accession Number: [id number] / [id number] Procedure: YE - Screening Mammo w/Yao CPT Code: FULL RESULT: EXAM: Screening Mammo w/Yao DATE: 08/16/2018 3:32 PM CLINICAL HISTORY: Screening examination. TECHNIQUE: (B) - Bilateral CC and MLO views were obtained. COMPARISON: 05/11/2017 01/08/2016 PARENCHYMAL PATTERN: (A) - The breasts demonstrate scattered fibroglandular densities bilaterally. FINDINGS: There are no suspicious masses, calcifications, or areas of distortion. IMPRESSION: Negative examination. BI-RADS category 1. RECOMMENDATION: (ANNUAL) - Recommend routine annual screening mammography. BI-RADS CATEGORY: (1) - Negative. STANDARD QUALIFYING STATEMENTS: 1. This examination was not reviewed with the aid of Computer-Aided Detection (CAD). 2. A negative or benign imaging report should not preclude biopsy if clinically suspicious findings are present. 3. Dense breasts may obscure an underlying neoplasm. 4. This examination was reviewed with the aid of 3D breast imaging (tomosynthesis).
== END 2018-08-16 14:44 | disposition home or self-care (01) ==
LOC: DI 14:43
DX: Z12.31 Encounter for screening mammogram for malignant neoplasm of breast (principal)
CPT/HCPCS: 77063; 77067

== ENCOUNTER 2020-06-08 17:02 | Outpatient (CLI) | payer OTHER ==
--- NOTE | 2020-06-08 20:13 | Ultrasound Report ---
PROCEDURE: Duplex Ext Veins Left INDICATIONS: LEFT LEG PAIN TECHNIQUE: Real-time imaging, as well as color and pulse Doppler interrogation, were performed of the lower extr emity deep veins from the inguinal ligament to the popliteal fossa. COMPARISON: 11/19/2017 venous ultrasound.. FINDINGS: The deep veins are normally compressible, and free of intraluminal thrombus. Color and pu lse Doppler demonstrate normal phasic intraluminal flow. There is normal augmentation response to di stal compression maneuver. IMPRESSION: No DVT found left leg. Reviewed by: Eduardo Oneil MD on 06/08/2020 8:12 PM PST Approved by: Eduardo Oneil MD on 06/08/2020 8:12 PM PST Station ID: [id number]
== END 2020-06-08 17:03 | disposition home or self-care (01) ==
LOC: DI 17:02
PROVIDERS: ATTEND Physician Assistant Medical
DX: M79.605 Pain in left leg (principal)